=== PATIENT | female | born 1990 | race Caucasian/White ===

== ENCOUNTER → 2018-04-13 08:17 | Outpatient (CLI) | payer OTHER, SELFPAY ==
[2018-04-13 08:59] LABS: Basophils % 0.2 % (0.1-2.0); Eosinophils # 0.2 K/mm3 (0.0-0.4); Eosinophils % 2.6 % (0.1-12.0); Hematocrit 40.4 % (37.0-47.0); Lymphocytes # 1.8 K/mm3 (0.7-4.5); Lymphocytes % 24.8 % (10-50); Mean Corpuscular HGB Conc 32.3 g/dL (31.8-35.4); Mean Corpuscular Hemoglobin 29.5 pg (27.0-31.2); Mean Corpuscular Volume 91.3 fl (81-99); Mean Platelet Volume 7.9 fl (7.4-10.4); Monocytes # 0.3 K/mm3 (0.1-1.0); Monocytes % 4.4 % (1.7-9.3); Platelet Count 332 K/mm3 (142-424); Red Blood Count 4.42 M/mm3 (4.20-5.40); Red Cell Distribution Width 14.7 % (11.5-17.5); White Blood Count 7.4 K/mm3 (4.8-10.8)
--- NOTE | 2018-04-13 09:12 | XR_ITS ---
EXAM: XR lumbar spine min 4V HISTORY: ITS.REASON: Low Back Pian ORDERING PHYSICIAN: Romy Casarez PATIENT AGE: 27 years COMPARISON: CT scan lumbar spine 01/04/2016 FINDINGS: There is normal curvature and alignment. All lumbar vertebrae appear intact. Disc spaces are well maintained except for mild narrowing at L4-5 level. There is minimal posterior osteophytic spurring of the posterior inferior border of L4. No fracture or dislocation. No lytic or blastic change. All pedicles are intact and the transverse processes all appear intact. The SI joints are normal. There are bilateral tubal ligation clips seen in the upper pelvis. IMPRESSION: Minor degenerative disc disease L4-5 otherwise essentially normal study
[2018-04-13 09:47] LABS: Alanine Aminotransferase 28 U/L (12-78); Albumin Level 4.1 gm/dL (3.4-5.0); Albumin/Globulin Ratio 1.2 (1.1-1.8); Alkaline Phosphatase 105 U/L (46-116); Anion Gap 13.6 mEq/L (5-15); Aspartate Amino Transferase 14 U/L (15-37); Bilirubin,Total 0.8 mg/dL (0.2-1.0); Blood Urea Nitrogen 13 mg/dL (7-18); Calcium 9.4 mg/dL (8.5-10.1); Carbon Dioxide 27 mmol/L (21.0-32.0); Chloride 103 mmol/L (98-107); Chol/HDL Ratio 2.9 (1-3.5); Cholesterol 182 mg/dL (140-200); Creatinine,Serum 0.73 mg/dL (0.55-1.02); Estimated Glomerular Filt Rate 96 ml/min (>60); GFR (African American) 116 ML/MIN (>60); Globulin 3.5 gm/dl (1.3-3.2); Glucose 87 mg/dL (74-106); HDL Cholesterol 62 mg/dL (29-89); LDL Cholesterol 106 mg/dL (0-130); Phosphorous 3.2 mg/dL (2.4-4.9); Potassium 4.6 mmoL/L (3.5-5.1); Sodium 139 mmol/L (136-145); Thyroid Stimulating Hormone 2.63 uIU/ml (0.358-3.740); Total Protein,Serum 7.6 gm/dL (6.4-8.2); Triglycerides 68 mg/dL (30-200); Triiodothryronine (T3) Uptake 33 % (31-39); VLDL Cholesterol 14 mg/dL (0-40)
[2018-04-13 10:07] LABS: Hemoglobin A1C 5.5 % (0.0-7.0)
[2018-04-14 07:22] LABS: Hep A Ab, IgM Negative (Negative); Hepatitis B Core Antibody IgM Negative (Negative); Hepatitis B Surface Antigen Negative (Negative)
[2018-04-14 09:57] LABS: Vitamin D 25 Hydroxy 22.8 ng/mL (30.0-100.0)
[2018-04-14 09:58] LABS: Hepatitis C Antibody <0.1 s/co ratio (0.0-0.9)
== END ==
PROVIDERS: PCP Nurse Practitioner Family; Visit Provider Nurse Practitioner Family
DX: R53.83 Other fatigue (principal); M54.5 Low back pain; E55.9 Vitamin D deficiency, unspecified
CPT/HCPCS: 72110; 80053; 80061; 80069; 80074; 82652; 83036; 84436; 84443; 84479; 85025

== ENCOUNTER 2018-04-28 08:36 | Outpatient (RCR) | payer OTHER, SELFPAY ==
--- NOTE | 2018-04-28 09:34 | HMH.PTOPEV ---
PT Outpatient Evaluation Rehab PT Outpatient Evaluation Start: 04/28/18 08:37 Freq: Status: Active Protocol: Document 04/28/18 09:19 NEFTALI (Rec: 04/28/18 09:34 NEFTALI [id number]) Electronically Signed By Alex Gould, PT 04/28/18 09:19 Outpatient Therapy Subjective History Subjective History Patient is a 27 year old female presenting to outpatient PT with reports of acute low back pain of insidious onset starting approximatley 1 month ago. No radicular symptoms to report. Most recent diagnostics indicate L 4/5 DDD. Hx of c- section x 3. No other comorbidites to report. She is currently taking Naproxen and Prednisone for AI purposes . Chief Complaint Pain Symptom Type Sharp Shooting Symptoms Relieved By Rest/Positioning Prescription Meds Symptoms Aggravated By Sitting Walking Lifting Prior Functional Limitations None Current Functional Limitations Lifting Housework Sitting Recreation Activity Walking Symptom Description Constant but Variable Level of pain today (0-10) 3 Pain scale - at its best (0-10) 3 Pain scale - at its worst (0-10) 7 Lumbopelvic Eval Posture Thoracic Spine Posture Standing Position Neutral Lumbar Spine Posture Standing Position Neutral Assistive device Assistive Devices None / NA Gait Observation General Gait Pattern Observation No Deviations/Normal Palapation tenderness bilateral paraspinal tenderness Yes: L 4/5 2/4 Lumbar/Sacral Palpation Findings Tenderness Lumbar/Sacral Palpation Overall Comment B PSIS 2/4 Accessory Movement L4 bilateral L5 bilateral S1 bilateral Range of Motion Lumbar Spine ROM Reason Not Measured Within Functional Limits Manual Muscle Test Bilateral Knee Extension Strength Grade 5 Normal Knee Flexion Strength Grade 5 Normal Hip Flexion Strength Grade 5 Normal Hip Abduction Strength Grade 5 Normal Hip Adduction Strength Grade 5 Normal Extensor Hallucis Longus Strength Grade 5 Normal Ankle Dorsiflexion Strength Grade 5 Normal Gastronemius/Soleus Strength Grade 5 Normal
== END 2018-04-28 08:45 | disposition home or self-care (01) ==
LOC: PT 08:36
PROVIDERS: Visit Provider Nurse Practitioner Family
DX: M54.5 Low back pain (principal)
CPT/HCPCS: 97163

== ENCOUNTER 2021-06-11 19:32 | Emergency (ER) | payer OTHER, SELFPAY ==
[2021-06-11 19:33] VITALS: BP 148/88; PULSE 82; RESP 18; TEMP 36.4; O2SAT 99; BMI 27.8
--- NOTE | 2021-06-11 19:51 | XR_ITS ---
PROCEDURE INFORMATION: Exam: XR Right Foot Exam date and time: 06/11/2021 7:52 PM Age: 30 years old Clinical indication: Pain; Foot; Right TECHNIQUE: Imaging protocol: XR Right foot. Views: 3 or more views. COMPARISON: No relevant prior studies available. FINDINGS: Bones/joints: No acute fracture or dislocation. Soft tissues: Normal. IMPRESSION: No acute fracture or dislocation.
--- NOTE | 2021-06-11 20:19 | HMH.EDLOEX ---
ED Disposition Clinical Impression: Acute foot pain Qualifiers: Laterality: right Qualified Code(s): M79.671 - Pain in right foot Disposition: Home, Self-Care Condition on Discharge: Good Instructions: DI for Foot Pain Additional Instructions: use meds and see pcp and podiatry for follow up Prescriptions: Meloxicam [Mobic 15 mg tab] 15 mg PO DAILY #10 tab Transmission Status: Pending to [email or web address] #[id number] Referrals: Romy Casarez APRN [Primary Care Provider] - Jayce Freeman DPM [Physician] - Radha Damon APRN [Nurse Practitioner] - Jeny Brown DPM [Staff Physician] - - Critical Care Critical Care Time: No Attestation: On 06/11/21, the high probability of a clinically significant, sudden or life threatening deterioration of the following system(s) required my full and direct attention, intervention and personal management. The time I documented below is in addition to time spent performing reported procedures but includes the following listed in this critical care notation. Medical Decision Making - Medical Records Medical records reviewed: Yes: I reviewed the patient's medical records. - Jacinto Inquiry Pt receiving controlled substance: No Vital Signs: 06/11/21 19:33 Temperature 97.5 F L Temperature Source Oral Pulse Rate [Right] 82 Respiratory Rate 18 Blood Pressure [Right Arm] 148/88 H Blood Pressure Mean [Right Arm] 108 02 Sat by Pulse Oximetry 99 - Lab Data Lab results reviewed: Yes: I reviewed the patient's lab results. - Radiology Data #1 Image(s): Foot/Toes Image Reviewed: Yes I have reviewed radiologist's interpretation Preliminary Findings: No Fracture Seen - CT Data CT Scan: Other (foot ) Time Received: 21:[address] Reviewed: Yes: I have viewed the radiologist's interpretation Preliminary Findings: No Fracture Seen Medical Decision Narrative: has stable clinical exam and neg fx on xray anct rt foot will need podiatry consult Lower Extremity Injury HPI - General Chief Complaint: Extremity Injury, Lower Stated Complaint: PAIN R FOOT Time Seen by Provider: 06/11/21 20:00 Mode of Arrival: Ambulatory Source of Information: Patient, Medical Record Limitations: No Limitations Description of Symptoms (Recalled from ER Triage Doc. by RN): pt states had accodent involving rt foot several months ago and was never checked out. a couple of days ago rt foot began to hurt again - History of Present Illness HPI Narrative: over the last few days ball of rt foot pain with wt bearing and mov with no def injury - however had acute injury to rt foot about 3 months ago with slow resolution of pain - no fever or other c/o MD complaint: foot injury Onset (ago): day(s) Injury: Right: foot Type of Injury: unknown Place: home Severity: moderate Exacerbating factors: weight bearing, movement Associated symptoms: swelling, able to partially bear weight Other symptoms: none - Related Data Previous Rx's Medication Instructions Recorded naproxen 250 mg tablet 250 mg PO BID #60 tab 04/24/18 prednisone 20 mg tablet 20 mg PO BID #10 tab 04/24/18 Azithromycin [Z-Matias 250mg Tab*] 250 mg PO UD DOSE PK #6 tab 11/25/18 Brompheniramine/Pseudoephed/Dm 5 ml PO Q6HP PRN #240 syrup 11/25/18 [Bromfed Dm Cough Syrup] predniSONE [Prednisone 20mg 20 mg PO BID 4 Days #8 tab 11/25/18 Tab] Meloxicam [Mobic 15 mg tab] 15 mg PO DAILY #10 tab 06/11/21 Allergies Allergy/AdvReac Type Severity Reaction Status Date / Time No Known Allergies Allergy Verified 04/24/18 15:11 [facility] History - Hepatitis A Screen Drug use history?: No High risk sexual behaviors?: No History of sexually transmitted infection?: No Currently employed?: No Childcare worker?: No Do you have indoor plumbing?: Yes Do you have electricity?: Yes Attestation statement:: This patient has been screened for Hepatitis A risk factors. I have reviewed the patient's past medical history: Yes
--- NOTE | 2021-06-11 20:26 | CT_ITS ---
PROCEDURE INFORMATION: Exam: CT Right Lower Extremity Without Contrast, Foot Exam date and time: 06/11/2021 8:41 PM Age: 30 years old Clinical indication: Pain; Foot; Right; Additional info: Injury TECHNIQUE: Imaging protocol: CT of the Right lower extremity without contrast was performed. Exam focused on the foot. 3D rendering (Not supervised by radiologist): MIP and/or 3D reconstructed images were created by the technologist. Radiation optimization: All CT scans at this facility use at least one of these dose optimization techniques: automated exposure control; mA and/or kV adjustment per patient size (includes targeted exams where dose is matched to clinical indication); or iterative reconstruction. COMPARISON: CR XR FOOT RT MIN 3V 06/11/2021 7:52 PM FINDINGS: Bones/joints: No acute fracture or dislocation. Bipartite sesamoid bone associated with the great toe MTP joint is noted. Soft tissues: Soft tissue edema along the plantar aspect of the 2nd and 5th MTP joint. IMPRESSION: 1. No acute fracture or dislocation. 2. Soft tissue edema along the plantar aspect of the 2nd and 5th MTP joint. This could be soft tissue contusion.
[2021-06-11 21:40] VITALS: BP 119/78; PULSE 83; RESP 18; TEMP 36.6; O2SAT 99
== END 2021-06-11 21:45 | disposition home or self-care (01) ==
PROVIDERS: Emergency Provider Emergency Medicine; PCP Nurse Practitioner Family
DX: M79.671 Pain in right foot (principal); R00.2 Palpitations; G43.909 Migraine, unspecified, not intractable, without status migrainosus; M19.90 Unspecified osteoarthritis, unspecified site; Z79.52 Long term (current) use of systemic steroids; Z79.899 Other long term (current) drug therapy; Z87.891 Personal history of nicotine dependence; Z82.49 Family history of ischemic heart disease and other diseases of the circulatory system; Z83.438 Family history of other disorder of lipoprotein metabolism and other lipidemia; Z82.5 Family history of asthma and other chronic lower respiratory diseases; Z83.3 Family history of diabetes mellitus
CPT/HCPCS: 73630; 73700; 99285

== ENCOUNTER 2024-04-20 08:45 | Emergency (ER) | payer OTHER, SELFPAY ==
[2024-04-20 08:58] VITALS: BP 143/88; PULSE 106; RESP 16; TEMP 36.8; O2SAT 100; BMI 35.4
--- NOTE | 2024-04-20 09:10 | XR_ITS ---
FINAL REPORT CLINICAL HISTORY: left posterior rib pain COMPARISON: None FINDINGS: No acute pulmonary opacity is present. There is no evidence of effusion or pneumothorax. Mediastinum is unremarkable. Heart size is normal. IMPRESSION: No acute abnormality. Reviewed, Interpreted and Dictated by Patrick Millan MD Transcribed by Molly Chavez Authenticated and [facility]
--- NOTE | 2024-04-20 09:15 | PC.NURSE ---
0904- Patient resting in recliner, awaiting provider evaluation. Patient expresses no needs at this time. A & O x 4. Respirations are even and unlabored.
[2024-04-20] MEDS: METHOCARBAMOL 500MG TABLET 1000 MG PO (09:18)
[2024-04-20] MEDS: IBUPROFEN 600 MG TABLET PO (09:18)
[2024-04-20] MEDS: ACETAMINOPHEN 500MG TAB 1000 MG PO (09:18)
--- NOTE | 2024-04-20 09:24 | PC.NURSE ---
0915- Radiology at bedside for XR.
--- NOTE | 2024-04-20 09:29 | HMH.EDGENADL ---
Discharge Plan Disposition Patient Disposition: Home, Self-Care Condition: Fair Prescriptions Prescriptions: New methocarbamol 500 mg tablet 500 mg PO Q6H PRN (Reason: Muscle Spasm) Qty: 120 0RF Referrals Follow up/Referrals: Romy Casarez APRN [Primary Care Provider] - See instructions Activity Restrictions/Add. Instructions Additional Instructions/Restrictions: You are being prescribed Robaxin, a muscle relaxer, to help with your symptoms. In addition to this, you can take Tylenol and ibuprofen every 6 hours as needed to help with symptoms. You can continue to use the lidocaine patches to help with symptoms. Follow-up with your primary care physician if symptoms do not improve. If you develop any new or worsening symptoms, or if you become concerned for your health for any reason, return to the emergency department for evaluation Clinical Impressions Clinical Impression: Acute left-sided back pain Stand Alone Forms Stand Alone Forms: Work/School Release Print Language Print Language: Ghanaian Discharge ED Provider: Jacky Wilson Adult [facility] General Chief complaint: PAIN Stated complaint: left shoulder pain Time Seen by Provider: 04/20/24 09:06 Mode of Arrival: Ambulatory Source of Information: Patient Limitations: No Limitations Description of Symptoms (Recalled from ER Triage Doc. by RN): Patient reports left shoulder pain for one week. History of Present Illness HPI narrative: Milly Isidro is a 33-year-old female with no significant past medical history who presents to the emergency department for left back/scapular pain. Patient states that starting 1 week ago, she had pain to both scapular areas but over the last several days it has migrated to her left scapular area/left shoulder. 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 She notes that she is right-handed. She was told today that she would either need to come to the emergency department before work or after work to be evaluated as it seems to be affecting her work. She has not taken any medications for it other than the lidocaine patch, which did not help. She denies any trauma or falls. She denies any fever or shortness of breath or chest pain. Related Data Previous Rx's ?Medication ?Instructions ?Recorded methocarbamol 500 mg tablet 500 mg PO Q6H PRN Muscle Spasm 04/20/24 #120 tabs Allergies Allergy/AdvReac Type Severity Reaction Status Date / Time No Known Allergies Allergy Verified 04/24/18 15:11 [facility] Disclaimer: The information contained in this section may have been updated after the patient was seen, as this information can be updated by other users. Social History Smoking Status: Never smoker second hand exposure: No alcohol intake: never substance use type: denies use current occupational status: employed Travel in the last 8 weeks: None household members: family housing: house Have you lived/traveled outside [place] in past 30 days?: No Contact w/someone who lives/traveled outside [place] past 30 days?: No Exposure to someone with infectious disease in past 14 days?: No Do you have a fever (greater than 100.4 F or 38 C)?: No Have you tested positive for COVID-19: No Exposed to someone with COVID-19 in past 14 days?: No Do you have a sore throat?: No Do you have a cough?: No Do you have any weakness?: No Do you have any diarrhea?: No Are you experiencing any unusual bleeding?: No Do you have any muscle aches/pain?: No Do you have any abdominal pain?: No Are you experiencing loss of taste or smell?: No Other Medical History Have you received the Flu Vaccine for this season: No Have you received the Pneumonia Vaccine: No ROS Obtained: Yes Systems reviewed as appropriate & no additional complaints except as documented Physical Exam General General appearance: alert and in no apparent distress Head Head exam: atraumatic Eye Eye exam: Present normal appearance ENT ENT exam: Present normal external ear exam Neck Neck exam: Present full ROM Chest Chest inspection: Present symmetric chest wall rise and other (Tenderness palpation over the left scapular area along the medial aspect without deformity or step-off) Respiratory Respiratory exam: Present normal lung sounds bilaterally; Absent respiratory distress Cardiovascular Cardiovascular exam: Present regular rate and normal rhythm Abdominal Exam Abdominal exam: Present soft; Absent tenderness or guarding Extremities Exam Extremities exam: Present normal inspection Back Exam Back exam: Present normal inspection Neurological Exam Neurological exam: Present alert and oriented X3 Psychiatric Psychiatric exam: Present normal affect Skin Skin exam: Present warm and dry Medical Decision Making Medical Records Screening: Per USPSTF and CDC recommendations, given the prevalence of disease in our region, it is our hospital?s policy to screen for HIV and viral Hepatitis for all patients aged 18 and over and those with ongoing risk factors. Jacinto Inquiry Pt receiving controlled substance: No Vital Signs: 04/20/24 08:58 04/20/24 10:37 04/20/24 11:14 Temperature 98.3 F 97.7 F Temperature Source Oral Pulse Rate 66 68 Pulse Rate [Right] 106 H Respiratory Rate 16 16 13 Blood Pressure 140/84 132/86 Blood Pressure [Right Arm] 143/88 H Blood Pressure Mean [Right Arm] 106 Blood Pressure Source [Right Arm] Automatic Cuff 02 Sat by Pulse Oximetry 100 99 Oxygen Delivery Method Room Air Room Air Room Air Orders (Tests/Meds): ED MEDICATIONS Discontinued Medications Generic Name Dose Route Start Last Admin Trade Name Jamal PRN Reason Stop Dose Admin Acetaminophen 1,000 mg 04/20/24 09:10 04/20/24 09:18 Acetaminophen 500mg Tab PO 04/20/24 09:11 1,000 mg ONCE ONE Administration Ibuprofen 600 mg 04/20/24 09:10 04/20/24 09:18 Ibuprofen 600 Mg Tablet PO 04/20/24 09:11 600 mg ONCE ONE Administration Methocarbamol 1,000 mg 04/20/24 09:10 04/20/24 09:18 Methocarbamol 500mg Tablet PO 04/20/24 09:11 1,000 mg BID ONE Administration ORDERS Category Date Time Status CXR --portable [XR chest portable] Stat Exams 04/20/24 09:10 Completed Medical Decision Narrative: Milly Isidro is a 33-year-old female with no significant past medical history who presents to the emergency department for left back/scapular pain. Patient states that starting 1 week ago, she had pain to both scapular areas but over the last several days it has migrated to her left scapular area/left shoulder. 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 She notes that she is right-handed. She was told today that she would either need to come to the emergency department before work or after work to be evaluated as it seems to be affecting her work. She has not taken any medications for it other than the lidocaine patch, which did not help. She denies any trauma or falls. She denies any fever or shortness of breath or chest pain. On arrival, patient is hemodynamically stable, in no acute respiratory distress, breathing comfortably on room air. Physical exam, stated above, revealed an overall well-appearing female in no distress. She has some mild tenderness along the medial scapular line but no deformities, flail chest. No tenderness in the midline cervical or thoracic spine. Differential diagnosis includes, but is not limited to: Muscle strain, rib fracture, neuropathic pain, pneumonia, among others. Low concern for pulmonary embolism or ACS at this time given reproducible nature of the pain and location of the pain. Low concern for aortic etiology at this time given her normal blood pressure. Will obtain chest x-ray to evaluate for any pneumonia and treat patient's pain with Tylenol, ibuprofen and Robaxin. Chest x-ray interpreted by me personally and was unremarkable for any pneumonia, pneumothorax or pulmonary effusion. See radiology report for final details. On reassessment, patient reported some improvement in her symptoms. Is felt that she is appropriate for discharge at this time as her symptoms are likely musculoskeletal in nature and should improve over time with symptomatic relief. She is being discharged with a prescription for Robaxin and was instructed to take Tylenol and ibuprofen and her lidocaine patches as needed. She demonstrated understanding and was in agreement this plan. She was then discharged from the emergency department in stable condition. Critical Care Critical Care Time Critical Care Time: No
--- NOTE | 2024-04-20 09:58 | PC.NURSE ---
0956- Patient reports pain is now 5/10, patient expresses no needs at this time. Awaiting results and disposition.
--- NOTE | 2024-04-20 10:35 | PC.NURSE ---
1035- Patient reports pain 06/03. Patient expresses no needs at this time. Awaiting disposition.
[2024-04-20 10:37] VITALS: BP 140/84; PULSE 66; RESP 16; O2SAT 99
[2024-04-20 11:14] VITALS: BP 132/86; PULSE 68; RESP 13; TEMP 36.5; O2SAT 98
== END 2024-04-20 11:15 | disposition home or self-care (01) ==
PROVIDERS: Emergency Provider Student in an Organized Health Care Education/Training Program; PCP Nurse Practitioner Family
DX: M25.512 Pain in left shoulder (principal); M54.9 Dorsalgia, unspecified
CPT/HCPCS: 71045; 99283